=== PATIENT | male | born 1980 | race Caucasian/White ===

== ENCOUNTER 2018-05-19 09:51 | Outpatient (CLI) | payer OTHER ==
--- NOTE | 2018-05-19 10:45 | RAD ---
RIGHT ANKLE 3 VIEWS: HISTORY: Ankle pain. Injury. M25.571. COMPARISON: None. FINDINGS: Evidence of old deltoid ligament injury. Likely an old osteochondral defect, large, in the medial ta lar dome with articular surface depression. Large joint effusion. IMPRESSION: Evidence of old deltoid ligament injury as well as large osteochondral defect medial talar dome. POS: [facility]
== END 2018-05-19 09:52 | disposition home or self-care (01) ==
LOC: BICRAD 09:51
PROVIDERS: ATTEND Family Medicine
DX: M25.571 Pain in right ankle and joints of right foot (principal); M21.6X1 Other acquired deformities of right foot